=== PATIENT | male | born 1960 | race Caucasian/White ===

== ENCOUNTER 2020-05-12 11:43 | Inpatient (IN) | payer BC ==
[~2020-05-12] VITALS: Ht 167.6 cm; Wt 72.6 kg
[2020-05-12] MEDS ORDERED: VANCOMYCIN 1,500MG inj. 1,500 MG in normal saline 500ml IV soln 300 ML IV ONE (12:10)
[2020-05-12] MEDS ORDERED: normal saline 1000ml 1,000 ML IV ONE (12:10)
[2020-05-12] MEDS ORDERED: cefazolin/dext.iso 2gm/50ml 50 ML IV ONE (12:10)
[2020-05-12 12:30] VITALS: BP 149/89
[2020-05-12 12:56] LABS: ALBUMIN 4.1 G/DL (3.4-5.0); ANION GAP 10 (8-16); BASOPHILS # (AUTO) 0.1 X10'3 (0-0.2); BASOPHILS % (AUTO) 0.8 % (0-1); BLOOD UREA NITROGEN 14 MG/DL (7-18); BUN/CREATININE RATIO 12.3 (5.4-32.0); CHLORIDE 101 MMOL/L (99-107); CREATININE 1.14 MG/DL (0.60-1.10); EOSINOPHILS # (AUTO) 0.1 X10'3 (0-0.9); EOSINOPHILS % (AUTO) 1.2 % (0-6); GLUCOSE 89 MG/DL (70-104); HEMATOCRIT 43.4 % (42.0-52.0); HEMOGLOBIN 14.7 g/dl (14.0-17.9); LYMPHOCYTES # (AUTO) 1.8 X10'3 (1.1-4.8); LYMPHOCYTES % (AUTO) 23.5 % (21-51); MEAN CORPUSCULAR HEMOGLOBIN 33.2 PG (27.0-31.0); MEAN CORPUSCULAR HGB CONC 33.8 g/dL (33.0-36.5); MEAN CORPUSCULAR VOLUME 98.2 FL (78-98); MEAN PLATELET VOLUME 6.9 FL (7.4-10.4); MONOCYTES # (AUTO) 0.6 X10'3 (0-0.9); MONOCYTES % (AUTO) 8.1 % (2-12); NEUTROPHILS # (AUTO) 5.1 X10'3 (1.8-7.7); NEUTROPHILS % (AUTO) 66.4 % (42-75); PLATELET COUNT 261 X10'3 (140-440); POTASSIUM 3.9 MMOL/L (3.5-5.1); RED BLOOD COUNT 4.42 X10'6 (4.70-6.10); RED CELL DISTRIBUTION WIDTH 12.9 % (11.5-14.5); SODIUM 136 MMOL/L (135-145); TOTAL CARBON DIOXIDE 24.8 MMOL/L (24-32); WHITE BLOOD COUNT 7.7 X10'3 (4.5-11.0); eGFR 66 ML/MIN
[2020-05-12] MEDS ORDERED: SIMV-45 PO (12:58)
[2020-05-12] MEDS ORDERED: OMEG-79 PO (12:58)
[2020-05-12] MEDS ORDERED: CHOL100046 PO (12:58)
[2020-05-12] MEDS ORDERED: LISI-600 PO (12:58)
[2020-05-12] MEDS ORDERED: SYN0.088T PO (12:58)
[2020-05-12 13:00] LABS: PARTIAL THROMBOPLASTIN TIME 24 SECONDS (22-32)
[2020-05-12] MEDS ORDERED: proCHLORperazine 10 MG/2 ml inj ONE (16:40)
[2020-05-12] MEDS ORDERED: fentaNYL/PF 50MCG/1 ML 2ML syringe ONE ×3 (16:41→19:07)
[2020-05-12] MEDS ORDERED: midazolam 2 mg/2 ml injection ONE ×4 (16:41→19:07)
[2020-05-12] MEDS ORDERED: LIDOcaine 1% W/epiNEPHrine 1:100,000 20ml vial ONE (16:41)
[2020-05-12] MEDS ORDERED: vancomycin 1,000mg inj ONE (16:45)
[2020-05-12] MEDS ORDERED: iohexol 350 MG/ML 50ML vial IV ONE (17:15)
[2020-05-12] MEDS ORDERED: iohexol 350MG/ML 100ml bottle IV ONE ×2 (17:40→18:17)
[2020-05-12 20:15] VITALS: BP 113/75
[2020-05-12 20:30] VITALS: BP 118/65
[2020-05-12 20:45] VITALS: BP 124/67
[2020-05-12 21:00] VITALS: BP 109/68
--- NOTE | 2020-05-12 21:04 | NUR ---
PAGER ID: [phone] MESSAGE: [id number] Jacky Hahn: here for pacemaker wire fx that got replaced. Chest Xray needed to be seen for any pneumothorax before discharge -Mar[facility] [phone]
[2020-05-12 22:00] VITALS: BP 102/65
--- NOTE | 2020-05-12 22:52 | NUR ---
Patient was discharged and taken by wheelchair to the front of the hospital where his ride picked him up. IV was taken out. Patient was given papers and educated on conscious sedation, warning signs and symptoms, not to raise his arm at home. He signed the appropriate paperwork and was given a copy. Post OP vital signs intervention was added and were charted.
== END 2020-05-12 23:10 | disposition home or self-care (01) | DRG 229 ==
LOC: SSTAY O 11:43 → PCU 3S 19:30
PROVIDERS: ADMIT Internal Medicine Cardiovascular Disease; ATTEND Internal Medicine Cardiovascular Disease
PROC: 0JWT3PZ Revision of Cardiac Rhythm Related Device in Trunk Subcutaneous Tissue and Fascia, Percutaneous Approach (ICD-10-PCS; principal; 2020-05-12)
PROC: 02N Heart and Great Vessels, Release (ICD-10-PCS; 2020-05-12)
PROC: 02PA3MZ Removal of Cardiac Lead from Heart, Percutaneous Approach (ICD-10-PCS; 2020-05-12)
PROC: B51V1ZZ Fluoroscopy of Other Veins using Low Osmolar Contrast (ICD-10-PCS; 2020-05-12)
PROC: 02HL3JZ Insertion of Pacemaker Lead into Left Ventricle, Percutaneous Approach (ICD-10-PCS; 2020-05-12)
DX: T82.110A Breakdown (mechanical) of cardiac electrode, initial encounter (principal); I44.2 Atrioventricular block, complete; R00.1 Bradycardia, unspecified; Z79.899 Other long term (current) drug therapy; Y83.8 Other surgical procedures as the cause of abnormal reaction of the patient, or of later complication, without mention of misadventure at the time of the procedure; Y92.89 Other specified places as the place of occurrence of the external cause
CPT/HCPCS: 33216; 36415; 71045; 80048; 83735; 85025; 85610; 85730; 93005; 99152; 99153; A4565; A4620; A6258; C1725; C1769; C1777; C1882; C1887; C1894; G0378; J0780; J2250; J3010; J3370; J7030; Q9967